=== PATIENT | male | born 1970 | race Caucasian/White ===

== ENCOUNTER 2022-05-04 13:20 | Emergency (ER) | payer OTHER ==
--- OUTSIDE RECORDS SUMMARY | 2022-05-04 13:24 | XMS REPORT | Continuity of Care Document ---
:1970 Author Organization [facility] t Address [address] [place] [address] Dr. Serrano [address] [place] [id number] Care Team Providers Name Role Phone Efraín_A Attending Clinician Unavailable Efraín_A Admitting Clinician Unavailable Payers Payer Name Policy Type Policy Number Effective Date Expiration Date William hoffman [employer] - CHOICE [id number] 2006 00:00:00 (POS II) Problems This patient has no known problems. Allergies, Adverse Reactions, Alerts This patient has no known allergies or adverse reactions. Social History Smoking Status Start Date Stop Date Source Former Smoker [facility] Medications Ordered Filled Start Stop Current Ordering Indication Dosage Frequency Signature Comments Components Source Medication Medication Date Date Medication? Clinician (SIG) Name Name allopurinol allopurinol No allopurino [facility] 100 mg 100 mg l 100 mg da tablet tablet tablet [facility] amlodipine amlodipine No amlodipine [facility] 5 mg tablet 5 mg tablet 5 mg d a tablet [facility] benzonatate benzonatate No 1capsul Q8H benzonatat [facility] 200 mg 200 mg e(s) e 200 mg da capsule capsule capsule Medica [facility] Take 1 Take 1 Take 1 Group capsule capsule capsule every 8 every 8 every 8 hours by hours by hours by oral route oral route oral route as needed. as needed. as needed. as needed as needed as needed for cough for cough for cough cefdinir cefdinir No 1capsul Q12H cefdinir [facility] 300 mg 300 mg e(s) 300 mg da capsule capsule capsule Medica l Take 1 Take 1 Take 1 Group capsule capsule capsule every 12 every 12 every 12 hours by hours by hours by oral route oral route oral route for 10 for 10 for 10 days. days. days. cyclobenzap cyclobenzap No cyclobenza [facility] rine 10 mg rine 10 mg richard 10 da tablet tablet mg tablet [facility]ica [facility] furosemide furosemide No furosemide [facility] 20 mg 20 mg 20 mg da tablet tablet tablet [facility] ibuprofen ibuprofen No ibuprofen [facility] 800 mg 800 mg 800 mg da tablet tablet tablet [facility] Jynarque 15 Jynarque 15 No Jynarque [facility] mg (AM)/15 mg (AM)/15 15 mg da mg (PM) mg (PM) (AM)/15 mg Med ical tablets tablets (PM) Group tablets lisinopril lisinopril No lisinopril [facility] 20 mg 20 mg 20 mg da tablet tablet tablet [facility] potassium potassium No potassium [facility] citrate ER citrate ER citrate ER da 15 mEq 15 mEq 15 mEq Medical (1,620 mg) (1,620 mg) (1,620 mg) Group tablet,exte tablet,exte tablet,ext nded nded ended release release release TAKE 1 TAKE 1 TAKE 1 TABLET BY TABLET BY TABLET BY MOUTH TWICE MOUTH TWICE MOUTH DAILY DAILY TWICE DAILY prednisone prednisone No prednisone [facility] 20 mg 20 mg 20 mg da tablet tablet tablet [facility] lisinopril lisinopril No lisinopril [facility] 20 20 20 da mg-hydrochl mg-hydrochl mg-hydroch Medical orothiazide orothiazide [facility] 25 mg 25 mg de 25 mg tablet TAKE tablet TAKE tablet 1 TABLET BY 1 TABLET BY TAKE 1 MOUTH 1 MOUTH 1 TABLET BY TIME EACH TIME EACH MOUTH 1 DAY DAY TIME EACH DAY Tessalon Tessalon No 1capsul Q7H Tessalon [facility] Perles 100 Perles 100 e(s) Perles 100 da mg capsule mg capsule mg capsule Medical Take 1 Take 1 Take 1 Group capsule capsule capsule every 6-8 every 6-8 every 6-8 hours by hours by hours by oral route. oral route. oral as needed as needed route. as for cough for cough needed for cough Vital Signs Vital Name Observation Time Observation Value Comments Source BP Diastolic 2022-03-06 00:00:00 93 mm[Hg] [facility] Height 2022-03-06 00:00:00 70 [in_i] [facility] BMI (Body Mass 2022-03-06 00:00:00 33 kg/m2 [facility]) Group BP Systolic 2022-03-06 00:00:00 130 mm[Hg] [facility] Body Weight 2022-03-06 00:00:00 3680 [oz_av] [facility] Height 2020-06-30 00:00:00 70 [in_i] [facility] BMI (Body Mass 2020-06-30 00:00:00 31.6 kg/m2 [facility] Body Weight 2020-06-30 00:00:00 3520 [oz_av] [facility] Procedures This patient has no known procedures. Plan of Care Planned Activity Planned Date Details Comments Source Diagnostic Test 2022-03-06 rapid influenza [facility] Pending 00:00:00 virus A + B and SARS Group CoV + SARS CoV 2 Ag panel, [place], upper respiratory specimen [code = rapid influenza virus A + B and SARS CoV + SARS CoV 2 Ag panel, [place], upper respiratory specimen] Diagnostic Test 2022-03-06 rapid strep group A, [facility] Pending 00:00:00 throat [code = rapid Group strep group A, throat] Instructions [facility] Encounters Start End Encounter Admission Attending Care Care Encounter Source Date/Time Date/Time Type Type Clinicians Facility Department ID 2022-03-06 2022-03-06 Outpatient Efraín_Zac [facility] [id number] [facility] 00:00:00 00:00:00 [id number] 2022-03-06 2022-03-06 Fátima [facility] [place] - [id number] M [facility] 00:00:00 00:00:00 Discovery almita Kenny PA-C: [facility] [address] [place] [address] , Ph. 2020-06-30 2020-06-30 Fátima Lowe [facility] [place] - [id number] [facility] 00:00:00 00:00:00 Discovery Efraín 0324 da PA-C: [facility] [address] [place] [address] , Ph. Results This patient has no known results.
[2022-05-04 13:52] LABS: Absolute Lymphocytes (CBC) 0.7 K/uL (0.7-4.9); Hematocrit 44.6 % (39.6-49.0); Lymphocytes % 4.7 % (15.3-44.8); MCV 88.8 fL (80-100); MPV 7.7 fL (7.6-11.3); RBC Red Blood Cell Count 5.02 M/uL (4.33-5.43)
[2022-05-04] MEDS ORDERED: ONDANSETRON 4 MG/2 ML VIAL ONE (13:57)
[2022-05-04] MEDS ORDERED: MORPHINE 4 MG/ML SYR ONE (13:57)
[2022-05-04 14:13] LABS: Albumin 3.4 g/dL (3.4-5.0); Bilirubin Direct 0.1 mg/dL (0-0.2); Bilirubin Total 0.7 mg/dL (0.2-1.0); Magnesium 2.2 mg/dL (1.6-2.4); Potassium 4.5 mmol/L (3.5-5.1); Protein, Total 7.6 g/dL (6.4-8.2); Troponin High Sensitivity 6.6 pg/mL (<58.9)
[2022-05-04 14:38] LABS: Blood Morphology Comment NOT SEEN (NOT SEEN); Platelet Estimate ADEQ; White Blood Cell Scan OK (OK)
--- NOTE | 2022-05-04 14:43 | RAD REPORT ---
EXAM DESCRIPTION: US - Abdomen Exam Limited - 05/04/2022 2:29 pm CLINICAL HISTORY: Right upper quadrant pain COMPARISON: None. FINDINGS: Liver contains many cysts. They vary in size from a few millimeters to several centimeters . No hemorrhage is seen. Gallbladder is probably seen. Gallbladder wall not thickened. A gallstone is not seen. Biliary tree i s normal caliber IMPRESSION: Hepatic cysts Gallbladder probably seen. No abnormality displayed
--- NOTE | 2022-05-04 15:22 | RAD REPORT ---
EXAM DESCRIPTION: Song Single View05/04/2022 2:46 pm CLINICAL HISTORY: Abdominal pain COMPARISON: none FINDINGS: The lungs appear clear of acute infiltrate. The heart is normal size IMPRESSION: No acute abnormalities displayed
--- NOTE | 2022-05-04 16:01 | RAD REPORT ---
EXAM DESCRIPTION: CT - Stone Protocol - 05/04/2022 3:38 pm CLINICAL HISTORY: Abdominal pain. Right flank pain COMPARISON: None. TECHNIQUE: Computed axial tomography of the abdomen pelvis was obtained without oral or IV contrast. Lack of IV and oral contrast limits evaluation of solid organs, appendix, bowel, and vessels. Lebron l reformatted images were obtained and reviewed. All CT scans are performed using dose optimization technique as appropriate and may include automated exposure control or mA/KV adjustment according to patient size. FINDINGS: The liver contains innumerable cysts. The largest measures 10 centimeters. Hepatomegaly Kidneys are enlarged containing innumerable cysts. Almost all are simple. There are couple cysts with increased density which are small. This may represent protein or blood. These probably are not signi ficant. 1 centimeter calculus right kidney. No hydronephrosis Spleen, pancreas and adrenals grossly normal No evidence of diverticulitis. Small right inguinal hernia contains fat IMPRESSION: Polycystic renal and liver disease. Hepatomegaly Nonobstructing right renal calculus
--- NOTE | 2022-05-04 16:38 | EDPHYS ---
Physician Documentation [facility] Name: Liban Díaz III Age: 51 yrs Sex: Male : 1970 Arrival Date: 05/04/2022 Time: 13:21 Bed 11 Private MD: Jacobo Whaley ED Physician Ken Gonzalez HPI: 05/04 13:45 This 51 yrs old Male presents to ER via Ambulatory with complaints of Epigastric Pain. cp 13:45 The patient presents with abdominal pain in the right upper quadrant. cp 13:45 Onset: The symptoms/episode began/occurred yesterday. cp 13:45 The symptoms do not radiate. Associated signs and symptoms: Pertinent positives: cp nausea, Pertinent negatives: chest pain, constipation, diarrhea, dysuria, fever, shortness of breath, testicular pain, vomiting. 13:45 The symptoms are described as constant. cp Historical: - Allergies: 13:32 No Known Allergies; iw - Home Meds: 13:32 potassium citrate oral [Active]; furosemide 20 mg Oral tab 1 tab once daily [Active]; iw prednisone 20 mg Oral tab once daily [Active]; lisinopril 20 mg Oral tab 1 tab once daily [Active]; Jynarque 15 mg oral tab [Active]; - PMHx: 13:32 PCKD; Hypertensive disorder; iw - PSHx: 13:32 ankle; shoulder; iw - Immunization history:: Client reports having NOT received the Covid vaccine. - Social history:: Smoking status: . ROS: 13:50 Constitutional: Negative for body aches, chills, fever, poor PO intake. cp 13:50 Eyes: Negative for injury, pain, redness, and discharge. cp 13:50 ENT: Negative for drainage from ear(s), ear pain, sore throat, difficulty swallowing, cp difficulty handling secretions. 13:50 Cardiovascular: Negative for chest pain, edema, palpitations. 13:50 Respiratory: Negative for cough, shortness of breath, wheezing. 13:50 Abdomen/GI: Positive for abdominal pain, of the right upper quadrant, Negative for vomiting, diarrhea, constipation. 13:50 Back: Negative for pain at rest, pain with movement. 13:50 : Negative for urinary symptoms, testicular pain 13:50 Neuro: Negative for altered mental status, dizziness, headache, weakness. 13:50 All other systems are negative. Exam: 13:55 Constitutional: The patient appears in no acute distress, alert, awake, cp non-diaphoretic, non-toxic, well developed, well nourished, uncomfortable, overweight 13:55 Head/Face: Normocephalic, atraumatic. cp 13:55 Eyes: Periorbital structures: appear normal, Conjunctiva: normal, no exudate, no injection, Sclera: no appreciated abnormality, Lids and lashes: appear normal, bilaterally. 13:55 ENT: External ear(s): are unremarkable, Nose: is normal, Mouth: Lips: moist, Oral mucosa: moist, Posterior pharynx: is normal, airway is patent, no erythema, no exudate. 13:55 Neck: ROM/movement: is normal, is supple, without pain, no range of motions limitations. 13:55 Chest/axilla: Inspection: normal. 13:55 Cardiovascular: Rate: tachycardic, Rhythm: regular, Edema: is not appreciated, JVD: is not appreciated. 13:55 Respiratory: the patient does not display signs of respiratory distress, Respirations: normal, no use of accessory muscles, no retractions, labored breathing, is not present, Breath sounds: are clear throughout, no decreased breath sounds, no stridor, no wheezing. 13:55 Abdomen/GI: Inspection: abdomen appears normal, Bowel sounds: active, all quadrants, Palpation: soft, in all quadrants, moderate abdominal tenderness, in the right upper quadrant, rebound tenderness, is not appreciated, voluntary guarding, is elicited in the right upper quadrant. 13:55 Back: CVA tenderness, is absent. 13:55 Neuro: Orientation: to person, place \T\ time. Mentation: is normal, Motor: moves all fours, strength is normal, Gait: is steady. 14:45 ECG was reviewed by the Attending Physician. cp Vital Signs: 13:30 BP 129 / 102; Pulse 123; Resp 16; Temp 98.6(O); Pulse Ox 95% on R/A; Weight 99.34 kg; iw Height 5 ft. 10 in. (177.80 cm); Pain 5/10; 16:28 BP 110 / 80; Pulse 73; Pulse Ox 98% on R/A; ap3 13:30 Body Mass Index 31.42 (99.34 kg, 177.80 cm) iw MDM: 13:36 Patient medically screened. cp 14:00 Differential diagnosis: cholecystitis, Cholelithiasis, gastritis, gastroesophageal cp reflux disease, GI Bleed, pancreatitis, Peptic Ulcer Disease, Perf. Duodenal Ulcer, Perf. Gastric Ulcer, Pyelonephritis, Ureterolithiasis, urinary tract infection. 16:37 Data reviewed: vital signs, nurses notes, lab test result(s), EKG, radiologic studies, cp CT scan, plain films, ultrasound. 16:37 Consideration of Admission/Observation Escalation of care including cp admission/observation considered. I considered the following discharge prescriptions or medication management in the emergency department Medications were administered in the Emergency Department. See MAR. Test considered but Not performed: Other Details HIDA scan. Care significantly affected by the following chronic conditions: Hypertension. Counseling: I had a detailed discussion with the patient and/or guardian regarding: the historical points, exam findings, and any diagnostic results supporting the discharge/admit diagnosis, lab results, radiology results, the need for outpatient follow up, a family practitioner, a study lead, to return to the emergency department if symptoms worsen or persist or if there are any questions or concerns that arise at home. Response to treatment: the patient's symptoms have markedly improved after treatment, and as a result, I will discharge patient. Special discussion: Based on the patient's Hx, exam, and Dx evaluation, there is no indication for emergent surgery or inpatient Tx. It is understood by the patient/guardian that if the Sx's persist or worsen they need to return immediately for re-evaluation. 05/04 13:38 Order name: Basic Metabolic Panel; Complete Time: 14:21 cp 05/04 16:13 Interpretation: Normal except: CL 108; GLUC 170; BUN 29; CRE 1.96; GFR 40. cp 05/04 13:38 Order name: CBC with Diff; Complete Time: 14:48 cp 05/04 14:22 Interpretation: Normal except: WBC 14.30; HERB% 90.9; LYM% 4.7; NEUT A 13.0. cp 05/04 13:38 Order name: LFT's; Complete Time: 14:21 cp 05/04 13:38 Order name: Magnesium; Complete Time: 14:21 cp 05/04 13:38 Order name: NT PRO-BNP; Complete Time: 14:21 cp 05/04 13:38 Order name: Troponin HS; Complete Time: 14:21 cp 05/04 13:38 Order name: XRAY Chest (1 view); Complete Time: 15:25 cp 05/04 15:26 Interpretation: Report review. 05/04 13:38 Order name: Lipase; Complete Time: 14:21 cp 05/04 13:38 Order name: US Abdomen Limited; Complete Time: 14:48 cp 05/04 15:18 Interpretation: Report reviewed. 05/04 14:01 Order name: CBC Smear Scan; Complete Time: 14:48 EDMS 05/04 15:20 Order name: CT Stone Protocol; Complete Time: 16:12 cp 05/04 13:38 Order name: EKG; Complete Time: 13:39 cp 05/04 13:38 Order name: EKG - Nurse/Tech; Complete Time: 14:42 cp 05/04 13:38 Order name: IV Saline Lock; Complete Time: 13:44 cp 05/04 13:38 Order name: Labs collected and sent; Complete Time: 13:44 cp 05/04 13:38 Order name: O2 Per Protocol; Complete Time: 14:42 cp 05/04 13:38 Order name: O2 Sat Monitoring; Complete Time: 14:42 cp 05/04 16:20 Order name: Vital Signs; Complete Time: 16:28 cp EC:45 Rate is 98 beats/min. Rhythm is regular. FL interval is normal. QRS interval is normal. cp QT interval is normal. T waves are Inverted in lead aVR. Interpreted by me. Reviewed by me. Administered Medications: 13:58 Drug: Zofran (Ondansetron) 4 mg Route: IVP; Site: left antecubital; iw 16:50 Follow up: Response: No adverse reaction; Nausea is decreased ap3 13:59 Drug: morphine 4 mg Route: IVP; Infused Over: 4 mins; Site: left antecubital; iw 16:50 Follow up: Response: No adverse reaction; Pain is decreased ap3 14:32 Drug: NS 0.9% 1000 ml Route: IV; Rate: 1 bolus; Site: right antecubital; ap3 16:50 Follow up: IV Status: Completed infusion; IV Intake: 1000ml ap3 16:28 Drug: ProTONIX (pantoprazole) 40 mg Route: IVP; Site: right antecubital; ap3 16:49 Follow up: Response: No adverse reaction ap3 Disposition: 17:04 I reviewed the patient's care provided by Advanced Practice Provider \T\ agree w/ the jr11 diagnosis \T\ care plan. I personally saw the pt \T\ performed a substantive portion of the visit, incldng all aspects of the (History/Exam/Medical Decision Making). Disposition Summary: 05/04/22 16:38 Discharge Ordered Location: Home cp Problem: new cp Symptoms: have improved cp Condition: Stable cp Diagnosis - Upper abdominal pain, unspecified cp - Chronic kidney disease, unspecified cp - Calculus of kidney - right cp Followup: cp - With: Michael Zamarripa MD - When: 2 - 3 days - Reason: Recheck today's complaints Discharge Instructions: - Discharge Summary Sheet cp - Gastroesophageal Reflux Disease, Adult cp - Kidney Stones cp - Chronic Kidney Disease, Adult cp Forms: - Medication Reconciliation Form cp - Thank You Letter cp - Antibiotic Education cp - Prescription Opioid Use cp Prescriptions: - Protonix 40 mg Oral tablet,delayed release (DR/EC) - take 1 tablet by ORAL route every 12 hours; 60 tablet; Refills: 0, Product cp Selection Permitted - Zofran 4 mg Oral Tablet - take 1 tablet by ORAL route every 12 hours As needed; 20 tablet; Refills: 0, cp Product Selection Permitted Signatures: Dispatcher [employer] Claudia Lopez, RN OSMANI iw Tristen Woo PA PA cp Amaris Rodriguez RN RN ap3 Ken Gonzalez MD MD [email or web address] Corrections: (The following items were deleted from the chart) 14:42 13:38 Cardiac monitoring ordered. cp ap3
--- NOTE | 2022-05-04 16:38 | ER ---
Nurse's Notes [facility] Name: Liban Díaz III Age: 51 yrs Sex: Male : 1970 Arrival Date: 05/04/2022 Time: 13:21 Bed 11 Private MD: Jacobo Whaley Diagnosis: Upper abdominal pain, unspecified;Chronic kidney disease, unspecified;Calculus of kidney-right Presentation: 05/04 13:30 Chief complaint: Patient states: have a real sharp pain on RUQ started yesterday, was iw seen by Attila Jain and was sent here, wants to R/O cholecystitis. Coronavirus screen: At this time, the client does not indicate any symptoms associated with coronavirus-19. Ebola Screen: Patient negative for fever greater than or equal to 101.5 degrees Fahrenheit, and additional compatible Ebola Virus Disease symptoms Patient denies exposure to infectious person. Patient denies travel to an Ebola-affected area in the 21 days before illness onset. No symptoms or risks identified at this time. Initial Sepsis Screen: Does the patient meet any 2 criteria? No. Patient's initial sepsis screen is negative. Does the patient have a suspected source of infection?. Risk Assessment: Do you want to hurt yourself or someone else? Patient reports no desire to harm self or others. Onset of symptoms was May 03, 2022. 13:30 Method Of Arrival: Ambulatory iw 13:30 Acuity: DALIA 3 iw Historical: - Allergies: 13:32 No Known Allergies; iw - Home Meds: 13:32 potassium citrate oral [Active]; furosemide 20 mg Oral tab 1 tab once daily [Active]; iw prednisone 20 mg Oral tab once daily [Active]; lisinopril 20 mg Oral tab 1 tab once daily [Active]; Jynarque 15 mg oral tab [Active]; - PMHx: 13:32 PCKD; Hypertensive disorder; iw - PSHx: 13:32 ankle; shoulder; iw - Immunization history:: Client reports having NOT received the Covid vaccine. - Social history:: Smoking status: . Screenin:[facility] ED Fall Risk Assessment (Adult) History of falling in the last 3 months, iw including since admission. Abuse screen: Denies threats or abuse. Denies injuries from another. Nutritional screening: No deficits noted. Tuberculosis screening: No symptoms or risk factors identified. Assessment: 14:00 General: Appears uncomfortable, Behavior is calm, cooperative. Pain: Complains of pain iw in right upper quadrant. Neuro: Level of Consciousness is awake, alert, obeys commands, Oriented to person, place, time, situation. Cardiovascular: Patient's skin is warm and dry. Respiratory: Respiratory effort is even, unlabored, Respiratory pattern is regular. GI: Abdomen is Abdomen is tender to palpation in right upper quadrant. Derm: Skin is intact, is healthy with good turgor. 15:43 Reassessment: Patient and/or family updated on plan of care and expected duration. Pain ap3 level reassessed. Patient is alert, oriented x 3, equal unlabored respirations, skin warm/dry/pink. Vital Signs: 13:30 BP 129 / 102; Pulse 123; Resp 16; Temp 98.6(O); Pulse Ox 95% on R/A; Weight 99.34 kg; iw Height 5 ft. 10 in. (177.80 cm); Pain 5/10; 16:28 BP 110 / 80; Pulse 73; Pulse Ox 98% on R/A; ap3 13:30 Body Mass Index 31.42 (99.34 kg, 177.80 cm) iw ED Course: 13:21 Patient arrived in ED. as 13:21 Jacobo Whaley MD is Private Physician. as 13:22 Tristen Woo PA is PHCP. cp 13:22 Ken Gonzalez MD is Attending Physician. cp 13:31 Triage completed. iw 13:32 Arm band placed on. iw 13:37 Amaris Rodriguez, OSMANI is Primary Nurse. ap3 13:43 Inserted saline lock: 22 gauge in right antecubital area, using aseptic technique. iw Blood collected. 14:31 US Abdomen Limited In Process Unspecified. EDMS 14:47 XRAY Chest (1 view) In Process Unspecified. EDMS 15:21 Patient has correct armband on for positive identification. Bed in low position. Call ap3 light in reach. Side rails up X 1. Pulse ox on. NIBP on. Door closed. Noise minimized. 15:21 No provider procedures requiring assistance completed. ap3 15:40 CT Stone Protocol In Process Unspecified. EDMS 16:33 Michael Zamarripa MD is Referral Physician. cp 16:49 IV discontinued, intact, bleeding controlled, No redness/swelling at site. Pressure ap3 dressing applied. Administered Medications: 13:58 Drug: Zofran (Ondansetron) 4 mg Route: IVP; Site: left antecubital; iw 16:50 Follow up: Response: No adverse reaction; Nausea is decreased ap3 13:59 Drug: morphine 4 mg Route: IVP; Infused Over: 4 mins; Site: left antecubital; iw 16:50 Follow up: Response: No adverse reaction; Pain is decreased ap3 14:32 Drug: NS 0.9% 1000 ml Route: IV; Rate: 1 bolus; Site: right antecubital; ap3 16:50 Follow up: IV Status: Completed infusion; IV Intake: 1000ml ap3 16:28 Drug: ProTONIX (pantoprazole) 40 mg Route: IVP; Site: right antecubital; ap3 16:49 Follow up: Response: No adverse reaction ap3 Medication: 15:21 VIS not applicable for this client. ap3 Intake: 16:50 IV: 1000ml; Total: 1000ml. ap3 Outcome: 16:38 Discharge ordered by . cp 16:49 Discharged to home ambulatory. ap3 16:49 Condition: good 16:49 Discharge instructions given to patient, Instructed on discharge instructions, follow up and referral plans. medication usage, Demonstrated understanding of instructions, follow-up care, medications, Prescriptions given X 2. 16:49 Patient left the ED. ap3 Signatures: Dispatcher [employer] Molly Hinds Irene, RN RN iw Tristen Woo PA PA cp Prokisch, Amanda, RN RN ap3 Corrections: (The following items were deleted from the chart) 13:34 13:30 BP 141 / 104; Pulse 123bpm; Resp 16bpm; Pulse Ox 95% RA; Temp 100.0F; 99.34 kg; iw Height 5 ft. 10 in.; BMI: 31.4; Pain 5/10; iw 13:35 13:30 BP 129 / 102; Pulse 123bpm; Resp 16bpm; Pulse Ox 95% RA; Temp 100.0F; 99.34 kg; iw Height 5 ft. 10 in.; BMI: 31.4; Pain 5/10; iw
[2022-05-04 17:07] VITALS: TEMP 98.6
[2022-05-04 17:13] VITALS: BP 110/80; O2SAT 98
--- NOTE | 2022-05-05 13:17 | EKG ---
Test Date: 2022-05-04 Test Time: 14:38:47 Extension Service Specialist: ALP MEASUREMENT RESULTS: Intervals: Rate: 98 FL: 162 QRSD: 86 QT: 334 QTc: 426 Celeste: P: 46 FL: 162 QRS: -46 T: 12 INTERPRETIVE STATEMENTS: Normal sinus rhythm Left axis deviation Inferior infarct, age undetermined Cannot rule out Anterior infarct, age undetermined Abnormal ECG No previous ECG available for comparison Electronically Signed On 05-05-22 13:14:56 HANDBAG DESIGNER by Marvin Tineo
== END 2022-05-04 16:49 | disposition home or self-care (01) ==
LOC: ER 13:20
DX: N20.0 Calculus of kidney (principal); I12.9 Hypertensive chronic kidney disease with stage 1 through stage 4 chronic kidney disease, or unspecified chronic kidney disease; N18.9 Chronic kidney disease, unspecified
CPT/HCPCS: 93005; 85025; 80048; 36415; 83735; 80076; 84484; 83690; 83880; 76377; 74176; 71045; 76705; 99284; J2405

== ENCOUNTER 2023-01-27 19:00 | Emergency (ER) | payer OTHER ==
--- OUTSIDE RECORDS SUMMARY | 2023-01-27 19:03 | XMS REPORT | Continuity of Care Document ---
:1970 Author Organization [facility] t Address [address] [place] [address] [place] [id number] Care Team Providers Name Role Phone ANNMARIE JOHNSON Attending Clinician Unavailable YARITZA SMITH Attending Clinician Unavailable Mynor Attending Clinician Unavailable MOHAN TORIBIO Attending Clinician Unavailable EV BUSH Attending Clinician Unavailable STACIA MOREL Attending Clinician Unavailable ORION SANDOVAL Attending Clinician Unavailable LEMUEL CUADRA Attending Clinician Unavailable CARA GALLEGOS Attending Clinician Unavailable Mynor Admitting Clinician Unavailable LEMUEL CUADRA Admitting Clinician Unavailable Payers Payer Name Policy Type Policy Number Effective Date Expiration Date William hoffman [employer] - CHOICE [id number] 2006 00:00:00 (POS II) Problems This patient has no known problems. Allergies, Adverse Reactions, Alerts This patient has no known allergies or adverse reactions. Social History Smoking Status Start Date Stop Date Source Former Smoker [facility] Medications Ordered Filled Start [...] mg da tablet tablet tablet [facility] allopurinol allopurinol No allopurino [facility] 100 mg 100 mg l 100 mg da tablet tablet tablet [facility] cefdinir cefdinir No 1capsul Q12H cefdinir [facility] 300 mg 300 mg e(s) 300 mg da capsule capsule capsule Medica l Take 1 Take 1 Take 1 Group capsule capsule capsule every 12 every 12 every 12 hours by hours by hours by oral route oral route oral route for 10 for 10 for 10 days. days. days. lisinopril lisinopril No lisinopril [facility] 20 20 20 da mg-hydrochl mg-hydrochl mg-hydroch Medical orothiazide orothiazide [facility] 25 mg 25 mg de 25 mg tablet TAKE tablet TAKE tablet 1 TABLET BY 1 TABLET BY TAKE 1 MOUTH 1 MOUTH 1 TABLET BY TIME EACH TIME EACH MOUTH 1 DAY DAY TIME EACH DAY codeine 10 codeine 10 No 5mL codeine 10 [facility] mg-guaifene mg-guaifene mg-guaifen da sin 100 sin 100 esin 100 Medic al mg/5 mL mg/5 mL mg/5 mL Group oral liquid oral liquid oral Take 5 mL Take 5 mL liquid by oral by oral Take 5 mL route at route at by oral bedtime. as bedtime. as route at needed for needed for bedtime. cough/ cough/ as needed congestion/ congestion/ for cough/ may cause may cause congestion drowsiness drowsiness / may cause drowsiness febuxostat febuxostat No febuxostat [facility] 40 mg 40 mg 40 mg da tablet tablet tablet [facility] furosemide furosemide No furosemide [facility] 20 mg 20 mg 20 mg da tablet tablet tablet [facility] lisinopril lisinopril No lisinopril [facility] 20 mg 20 mg 20 mg da tablet tablet tablet [facility] pantoprazol pantoprazol No pantoprazo [place] e 40 mg e 40 mg le 40 mg da tablet,billie tablet,billie tablet,del Medical yed release yed release ayed G roup TAKE 1 TAKE 1 release TABLET BY TABLET BY TAKE 1 MOUTH EVERY MOUTH EVERY TABLET BY 12 HOURS 12 HOURS MOUTH EVERY DAY EVERY DAY EVERY 12 HOURS EVERY DAY potassium potassium No potassium [facility] citrate ER citrate ER citrate ER da 15 mEq 15 mEq 15 mEq Medical (1,620 mg) (1,620 mg) (1,620 mg) Group tablet,exte tablet,exte tablet,ext nded nded ended release release release TAKE 1 TAKE 1 TAKE 1 TABLET BY TABLET BY TABLET BY MOUTH TWICE MOUTH TWICE MOUTH DAILY DAILY TWICE DAILY Tessalon Tessalon No 1capsul Q7H Tessalon [place] [...] Time Observation Value Comments Source BP Diastolic 2022-08-09 00:00:00 107 mm[Hg] [facility] Height 2022-08-09 00:00:00 70 [in_i] [facility] BMI (Body Mass 2022-08-09 00:00:00 32.7 kg/m2 [facility] BP Systolic 2022-08-09 00:00:00 156 mm[Hg] [facility] Body Weight 2022-08-09 00:00:00 3648 [oz_av] [facility] BP Diastolic 2022-03-06 00:00:00 93 mm[Hg] [facility] Height 2022-03-06 00:00:00 70 [in_i] [facility] BMI (Body Mass 2022-03-06 00:00:00 33 kg/m2 [facility] BP Systolic 2022-03-06 00:00:00 130 mm[Hg] [facility] Body Weight 2022-03-06 00:00:00 3680 [oz_av] [facility] Height 2020-06-30 00:00:00 70 [in_i] [facility] BMI (Body Mass 2020-06-30 00:00:00 31.6 kg/m2 [facility] Body Weight 2020-06-30 00:00:00 3520 [oz_av] [facility] Procedures This patient has no known procedures. Plan of Care Planned Activity Planned Date Details Comments Source Diagnostic Test 2022-03-06 rapid influenza [facility] Pending 00:00:00 virus A + B [...] rapid Group strep group A, throat] Instructions [facility] Encounters Start End Encounter Admission Attending Care Care Encounter Source Date/Time Date/Time Type Type Clinicians Facility Department ID 2023-01-27 2023-01-27 Emergency ER ALEX [facility] [id number] [facility] 17:40:00 17:40:00 ANNMARIE [id number] [facility] 2022-10-14 2022-10-14 Emergency ER SARAH, [facility] [id number] [facility] 20:30:00 23:33:00 YARITZA -[id number] [facility] 2022-08-09 2022-08-09 Outpatient Koudela_A [facility] [id number] [place] 00:00:00 00:00:00 [id number] [facility] 2022-08-09 2022-08-09 Fátima G [place] - [id number] [facility] 00:00:00 00:00:00 Discovery Efraín da PA-C: [address] [place] [address] , Ph. 2022-03-06 2022-03-06 Outpatient Koudela_A MMG [facility] [id number] [place] 00:00:00 00:00:00 [id number] [facility] 2022-03-06 2022-03-06 Fátima [facility] [place] - [id number] [facility] 00:00:00 00:00:00 Discovery Efraín da PA-C: [address] [place] [address] , Ph. 2021-09-16 2021-09-16 Outpatient CHERRY TORIBIO, [facility] [id number] [place] 09:22:00 09:22:00 VINITHA -[id number] [facility] 2021-07-15 2021-07-15 Outpatient CHERRY TORIBIO, [facility] [id number] [facility] 10:31:00 10:31:00 VINITHA -[id number] [facility] 2021-04-14 2021-04-14 Emergency ER EV BUSH [facility] [id number] [place] 13:44:00 16:38:00 -[id number] [facility] 2020-06-30 2020-06-30 Fátima Joceudela_[place] MM[place] - [id number] [facility] 00:00:00 00:00:00 Discovery Efraín 0324 da PA-C: 600 [facility] [place] [facility] - [address], [facility] [address] , Ph. 2018-12-01 2018-12-01 Emergency ER MOREL, [facility] [id number] [place] 13:41:00 14:09:00 STACIA -[id number] [facility] 2017-05-23 2017-05-23 Emergency ER [facility], [facility] [id number] [place] 10:48:00 12:47:00 ORION -[id number] [facility] 2014-02-12 2014-02-12 Emergency ER [facility], [facility] [id number] [place] 16:42:00 19:20:00 ORION -[id number] [facility] 2009-11-16 2009-11-17 Inpatient [facility] [id number] [place] 12:33:00 09:26:00 LEMUEL -[id number] [facility] 2008-06-26 2008-06-26 Emergency ER ROSY, [facility] [id number] [place] 03:05:00 04:58:00 CARA -[id number] [facility] Results This patient has no known results.
[2023-01-27 19:53] LABS: Absolute Lymphocytes (CBC) 2.4 K/uL (0.7-4.9); Lymphocytes % 16.3 % (15.3-44.8); MCV 86.6 fL (80-100); MPV 7.4 fL (7.6-11.3); Platelets 333 thou/uL (152-406); RBC Red Blood Cell Count 4.85 M/uL (4.33-5.43)
[2023-01-27 20:14] LABS: Albumin 3.5 g/dL (3.4-5.0); Bilirubin Total 0.4 mg/dL (0.2-1.0); Potassium 4.6 mEq/L (3.5-5.1); Protein, Total 8.2 g/dL (6.4-8.2)
--- NOTE | 2023-01-27 21:23 | RAD REPORT ---
EXAM DESCRIPTION: US - Abdomen Exam Limited - 01/27/2023 8:22 pm CLINICAL HISTORY: ABD PAIN COMPARISON: Stone Protocol dated 05/04/2022 TECHNIQUE: Sonographic grayscale and color flow images of the right upper abdominal quadrant were obtained. FINDINGS: The gallbladder demonstrates no gallstones. No pericholecystic fluid or gallbladder wall t hickening. The common bile duct is normal measuring 3 mm. The liver demonstrates innumerable thin-walled cysts. No findings of intrahepatic biliary dilatation. IMPRESSION: No evidence of chololithiasis, or findings to suggest acute cholecystitis. Innumerable h epatic parenchymal cysts, appearance compatible with multicystic liver disease.
--- NOTE | 2023-01-27 21:25 | RAD REPORT ---
EXAM DESCRIPTION: RAD - Chest Pa And Lat (2 Views) - 01/27/2023 7:52 pm CLINICAL HISTORY: COUGH COMPARISON: Chest Single View dated 05/04/2022 TECHNIQUE: PA and lateral views of the chest were obtained. FINDINGS: The lungs are clear. Heart size is normal and central vasculature is within normal limits. No pleural effusion or pneumothorax seen. No acute bony finding noted. IMPRESSION: No acute cardiopulmonary process.
--- NOTE | 2023-01-27 21:57 | ER ---
Nurse's Notes [facility] Name: Liban Díaz III Age: 52 yrs Sex: Male : 1970 Arrival Date: 01/27/2023 Time: 19:00 Bed 16 Private MD: Diagnosis: Right upper quadrant pain Presentation: 01/27 19:08 Chief complaint: Patient states: he is having right sided rib pain that radiates up to ap3 right ear. patient states the pain began approx 2 weeks ago, and is getting progressively worse. patient currently rates the pain a 7/10 on the pain scale. Coronavirus screen: At this time, the client does not indicate any symptoms associated with coronavirus-19. Ebola Screen: No symptoms or risks identified at this time. Initial Sepsis Screen: Does the patient meet any 2 criteria? No. Patient's initial sepsis screen is negative. Does the patient have a suspected source of infection? No. Patient's initial sepsis screen is negative. Risk Assessment: Do you want to hurt yourself or someone else? Patient reports no desire to harm self or others. Onset of symptoms was January 13, 2023. 19:08 Method Of Arrival: Ambulatory ap3 19:08 Acuity: DALIA 3 ap3 Triage Assessment: 19:11 General: Appears in no apparent distress. Behavior is calm, cooperative, appropriate ap3 for age. Pain: Complains of pain in right lateral anterior chest Pain radiates to right ear. Neuro: Level of Consciousness is awake, alert, obeys commands, Oriented to person, place, time, situation. Cardiovascular: Patient's skin is warm and dry. Respiratory: Airway is patent Respiratory effort is even, unlabored, Respiratory pattern is regular, symmetrical. Historical: - Allergies: 19:10 No Known Allergies; ap3 - PMHx: 19:10 Hypertensive disorder; PCKD; ap3 - PSHx: 19:10 Ankle; Shoulder; ap3 - Immunization history:: Client reports having NOT received the Covid vaccine. - Social history:: Smoking status: Patient denies any tobacco usage or history of. - Code Status:: Full code. Screenin:12 [facility] ED Fall Risk Assessment (Adult) History of falling in the last 3 months, ap3 including since admission No falls in past 3 months (0 pts). Abuse screen: Denies threats or abuse. Nutritional screening: No deficits noted. Tuberculosis screening: No symptoms or risk factors identified. Assessment: 19:51 General: Appears in no apparent distress. uncomfortable, well groomed, well developed, nw1 well nourished, Behavior is calm, cooperative, appropriate for age. Pain: Complains of pain in abdomen Pain radiates to neck Pain currently is 7 out of 10 on a pain scale. level that patient reports is acceptable is 3 out of 10 on a pain scale. Neuro: No deficits noted. Cardiovascular: No deficits noted. Respiratory: No deficits noted. GI: No deficits noted. Reports upper abdominal pain. : No deficits noted. Vital Signs: 19:08 BP 133 / 94; Pulse 90; Resp 17; Temp 100; Pulse Ox 100% ; Weight 98.43 kg; Height 5 ft. ap3 10 in. ; Pain 7/10; 19:53 BP 121 / 90; Pulse 89; Resp 15; Pulse Ox 97% ; nw1 21:56 BP 102 / 79; Pulse 80; Resp 16; Pulse Ox 99% ; nw1 19:08 Body Mass Index 31.14 (98.43 kg, 177.8 cm) ap3 19:08 Pain Scale: Adult ap3 ED Course: 19:02 Patient arrived in ED. mr 19:10 Triage completed. ap3 19:12 Arm band placed on right wrist. ap3 19:18 conductor yard on. Pulse ox on. NIBP on. ap3 19:25 Wai Brown DO is Attending Physician. ms3 19:51 Sarahy Zaragoza, RN is Primary Nurse. nw1 19:53 Chest Pa And Lat (2 Views) XRAY In Process Unspecified. EDMS 19:55 Patient has correct armband on for positive identification. Placed in gown. Bed in low nw1 position. Call light in reach. Side rails up X2. Adult w/ patient. Provided Education on: POC. 19:55 No provider procedures requiring assistance completed. Inserted saline lock: 20 gauge nw1 in left forearm, using aseptic technique. 20:24 US Abdomen Limited In Process Unspecified. EDMS 21:56 Timothy Bianchi DO is Referral Physician. ms3 22:19 IV discontinued, intact, bleeding controlled, No redness/swelling at site. Pressure nw1 dressing applied. Administered Medications: No medications were administered Medication: 19:54 VIS not applicable for this client. nw1 Outcome: 21:56 Discharge ordered by . ms3 22:18 Discharged to home ambulatory, with significant other, nw1 22:18 Condition: improved 22:18 Discharge instructions given to patient, significant other, Demonstrated understanding of instructions, follow-up care, 22:20 Patient left the ED. nw1 Signatures: Dispatcher [employer] EDMS Jaki Watson, Reg Reg mr Amaris Rodriguez, OSMANI RN ap3 Wai Brown, DO ms3 Sarahy Zaragoza, OSMANI RN nw1
--- NOTE | 2023-01-27 21:57 | EDPHYS ---
Physician Documentation [facility] Name: Liban Díaz III Age: 52 yrs Sex: Male : 1970 Arrival Date: 01/27/2023 Time: 19:00 Bed 16 Private MD: ED Physician Wai Brown HPI: 01/27 21:56 This 52 yrs old Male presents to ER via Ambulatory with complaints of Cough, Rib pain ms3 radiates to neck. 21:56 52-year-old male with past medical history of hypertension, polycystic kidney disease ms3 presents to the emergency department for right upper quadrant/rib pain with coughing. Patient states pain is 7/10 and sharp. Patient states coughing makes the pain worse. Patient denies alleviating factors.. Historical: - Allergies: 19:10 No Known Allergies; ap3 - PMHx: 19:10 Hypertensive disorder; PCKD; ap3 - PSHx: 19:10 Ankle; Shoulder; ap3 - Immunization history:: Client reports having NOT received the Covid vaccine. - Social history:: Smoking status: Patient denies any tobacco usage or history of. - Code Status:: Full code. ROS: 21:56 Constitutional: Negative for fever, and chills. Cardiovascular: Negative for chest ms3 pain, and palpitations. Skin: Negative for injury, rash, and discoloration, 21:56 Abdomen/GI: Positive for abdominal pain, of the right upper quadrant, Negative for nausea, vomiting, and diarrhea, Exam: 21:19 ECG was reviewed by the Attending Physician. ms3 21:56 Constitutional: This is a well developed, well nourished patient who is awake, alert, ms3 and in no acute distress. Head/Face: Normocephalic, atraumatic. Chest/axilla: Normal chest wall appearance and motion. Nontender with no deformity. Cardiovascular: Regular rate and rhythm with a normal S1 and S2. No gallops, murmurs, or rubs. Normal PMI, no JVD. No pulse deficits. Respiratory: Lungs have equal breath sounds bilaterally, clear to auscultation and percussion. No rales, rhonchi or wheezes noted. No increased work of breathing, no retractions or nasal flaring. Skin: Warm, dry with normal turgor. Normal color with no rashes, no lesions, and no evidence of cellulitis. 21:56 Abdomen/GI: Inspection: abdomen appears normal, Bowel sounds: normal, Palpation: moderate abdominal tenderness, in the right upper quadrant, Vital Signs: 19:08 BP 133 / 94; Pulse 90; Resp 17; Temp 100; Pulse Ox 100% ; Weight 98.43 kg; Height 5 ft. ap3 10 in. ; Pain 7/10; 19:53 BP 121 / 90; Pulse 89; Resp 15; Pulse Ox 97% ; nw1 21:56 BP 102 / 79; Pulse 80; Resp 16; Pulse Ox 99% ; nw1 19:08 Body Mass Index 31.14 (98.43 kg, 177.8 cm) ap3 19:08 Pain Scale: Adult ap3 MDM: 19:30 Patient medically screened. ms3 21:56 Differential Diagnosis: Viral Syndrome Pneumonia Other Cholecystitis. ms3 21:56 Data reviewed: vital signs, nurses notes, lab test result(s), radiologic studies, and ms3 as a result, I will discharge patient. Counseling: I had a detailed discussion with the patient and/or guardian regarding the historical points, exam findings, and any diagnostic results supporting the discharge/admit diagnosis, lab results, radiology results, the need for outpatient follow up, to return to the emergency department if symptoms worsen or persist or if there are any questions or concerns that arise at home. Special discussion: Based on the patient's Hx, exam, and Dx evaluation, there is no indication for emergent surgery or inpatient Tx. It is understood by the patient/guardian that if the Sx's persist or worsen they need to return immediately for re-evaluation. ED course: Discussed labs and imaging with patient and his . Patient to follow-up with primary care physician in 2 to 3 days. Patient understands and agrees with plan. All questions were answered. Return precautions discussed include worsening symptoms, or any other concerns. On reevaluation patient is alert and oriented x4, no apparent distress, nontoxic-appearing, ambulatory number department, speaking full sentences. 01/27 19:31 Order name: CBC with Diff; Complete Time: 20:58 ms3 01/27 19:31 Order name: CMP; Complete Time: 20:58 ms3 01/27 19:31 Order name: Lipase; Complete Time: 20:58 ms3 01/27 19:22 Order name: Chest Pa And Lat (2 Views) XRAY; Complete Time: 21:35 ms3 01/27 19:31 Order name: US Abdomen Limited; Complete Time: 21:35 ms3 01/27 19:31 Order name: EKG; Complete Time: 19:32 ms3 01/27 19:31 Order name: IV Saline Lock; Complete Time: 19:48 ms3 01/27 19:31 Order name: Labs collected and sent; Complete Time: 19:48 ms3 01/27 19:31 Order name: EKG - Nurse/Tech; Complete Time: 21:23 ms3 EC:19 Rate is 78 beats/min. Rhythm is regular. QRS [place] is Normal. VT interval is normal. QRS ms3 interval is normal. Clinical impression: NSR w/ Non-specific ST/T Changes. Interpreted by me. Reviewed by me. Administered Medications: No medications were administered Disposition Summary: 01/27/23 21:56 Discharge Ordered Notes: Location: Home ms3 Condition: Stable ms3 Diagnosis - Right upper quadrant pain ms3 Followup: ms3 - With: Timothy Bianchi DO - When: 2 - 3 days - Reason: Recheck today's complaints Discharge Instructions: - Discharge Summary Sheet ms3 - Abdominal Pain, Adult ms3 Forms: - Medication Reconciliation Form ms3 - Thank You Letter ms3 - Antibiotic Education ms3 - Prescription Opioid Use ms3 - Patient Portal Instructions ms3 - Leadership Thank You Letter ms3 Signatures: Dispatcher [employer] Amaris Ochoa, RN RN ap3 Wai Brown DO DO ms3 Sarahy Zaragoza RN RN nw1
--- NOTE | 2023-01-28 13:50 | EKG ---
Test Date: 2023-01-27 Test Time: 21:19:23 Medical Malpractice Paralegal: GLORIA MEASUREMENT RESULTS: Intervals: Rate: 78 WV: 172 QRSD: 92 QT: 368 QTc: 419 [place]: P: 36 WV: 172 QRS: 145 T: 6 INTERPRETIVE STATEMENTS: Normal sinus rhythm Indeterminate axis Low voltage QRS Inferior infarct, age undetermined Cannot rule out Anterior infarct, age undetermined Abnormal ECG Compared to ECG 05/04/2022 14:38:47 Indeterminate axis now present Low QRS voltage now present Left-axis deviation no longer present Myocardial infarct finding still present Electronically Signed On 01-28-23 13:49:37 CDT by Marvin Tineo
== END 2023-01-27 22:20 | disposition home or self-care (01) ==
LOC: ER 19:00
DX: R10.11 Right upper quadrant pain (principal); R05.9 Cough, unspecified; I10 Essential (primary) hypertension
CPT/HCPCS: 36415; 71046; 76705; 80053; 83690; 85025; 93005; 99284

== ENCOUNTER 2024-07-15 07:54 | Emergency (ER) | payer OTHER ==
--- OUTSIDE RECORDS SUMMARY | 2024-07-15 07:58 | XMS REPORT | Continuity of Care Document ---
Author Name Unknown Address [address] [place] [address] [address] [place] [address] [facility] Address [address] [facility]. [address] [place] [address] Care Team Providers Care Concession Stand Attendant Name Role Phone LUBNA BAKER Attending Clinician Unavailable RYAN STEPHENS Attending Clinician Unavailable VIVIANA BRUNSON Attending Clinician Unavailable OTHER, ENTER NAME IN NOTES Attending Clinician U ANNMARIE Ashley Attending Clinician UnavailYARITZA Orr Attending Clinician Unavailab caridad Lowe Attending Clinician Unavailable MOHAN TORIBIO Attending Clinician UnavailEV Zavala Attending Clinician Unavailable STACIA MOREL Attending Clinician Unavailable ORION SANDOVAL Attending Clinician Unavailab LEMUEL Munguia Attending Clinician Unavailable CARA GALLEGOS Attending Clinician Unavailable Mynor Admitting Clinician Unavailable LEMUEL CUADRA Admitting Clinician Unavailable Payers Payer Name Policy Type Policy Number Effective Date Expirati on Date Source [employer] - CHOICE (POS II) [id number] 2006 00:00:00 Social History Smoking Status Start Date Stop Date Source Former Smoker [facility] Medications Ordered Medication Name Filled Medication Name Start Date Stop Date Current Medication? Ordering Clinician Indication Dosage Frequency Signature (SIG) Comments Components Source allopurinol 100 mg tablet allopurinol 100 mg tablet No allopurino l 100 mg tablet [facility] cefdinir 300 mg capsule Take 1 capsule every 12 hours by oral route for 10 days. cefdinir 300 mg capsule Take 1 capsule every 12 hours by oral route for 10 days. No 1capsul e(s) Q12H cefdinir 300 mg capsule Take 1 capsule every 12 hours by oral route for 10 days. [facility] furosemide 20 mg tablet furosemide 20 mg tablet No furosemide 20 mg tablet [facility] Jynarque 15 mg (AM)/15 mg (PM) tablets Jynarque 15 mg (AM)/15 mg (PM) tablets No Jynarque 15 mg (AM)/15 mg (PM) tablets [facility] lisinopril 20 mg tablet lisinopril 20 mg tablet No lisinopril 20 mg tablet [facility] potassium citrate ER 15 mEq (1,620 mg) tablet,exte nded release TAKE 1 TABLET BY MOUTH IN THE MORNING AND IN THE EVENING potassium citrate ER 15 mEq (1,620 mg) tablet,exte nded release TAKE 1 TABLET BY MOUTH IN THE MORNING AND IN THE EVENING No potassium citrate ER 15 mEq (1,620 mg) tablet,ext ended release TAKE 1 TABLET BY MOUTH IN THE MORNING AND IN THE EVENING [facility] prednisone 20 mg tablet prednisone 20 mg tablet No prednisone 20 mg tablet [facility] codeine 10 mg-guaifene sin 100 mg/5 mL oral liquid Take 5 mL every 8 hours by oral route as needed. may cause drowsiness codeine 10 mg-guaifene sin 100 mg/5 mL oral liquid Take 5 mL every 8 hours by oral route as needed. may cause drowsiness No 5mL Q8H codeine 10 mg-guaifen esin 100 mg/5 mL oral liquid Take 5 mL every 8 hours by oral route as needed. may cause drowsiness [facility] febuxostat 40 mg tablet febuxostat 40 mg tablet No febuxostat 40 mg tablet [facility] pantoprazol e 40 mg tablet,billie yed release TAKE 1 TABLET BY MOUTH EVERY 12 HOURS EVERY DAY pantoprazol e 40 mg tablet,billie yed release TAKE 1 TABLET BY MOUTH EVERY 12 HOURS EVERY DAY No pantoprazo le 40 mg tablet,del ayed release TAKE 1 TABLET BY MOUTH EVERY 12 HOURS EVERY DAY [facility] albuterol sulfate HFA 90 mcg/actuati on aerosol inhaler INHALE 2 PUFFS BY MOUTH EVERY 4 HOURS NEEDED FOR WHEEZING OR SHORTNESS OF BREATH albuterol sulfate HFA 90 mcg/actuati on aerosol inhaler INHALE 2 PUFFS BY MOUTH EVERY 4 HOURS NEEDED FOR WHEEZING OR SHORTNESS OF BREATH No albuterol sulfate HFA 90 mcg/actuat ion aerosol inhaler INHALE 2 PUFFS BY MOUTH EVERY 4 HOURS NEEDED FOR WHEEZING OR SHORTNESS OF BREATH [facility] Flonase Allergy Relief 50 mcg/actuati on nasal spray,suspe nsion [place] 2 sprays every day by intranasal route. Flonase Allergy Relief 50 mcg/actuati on nasal spray,suspe nsion [place] 2 sprays every day by intranasal route. No 2spray( s) Q1D Flonase Allergy Relief 50 mcg/actuat ion nasal spray,susp ension [place] 2 sprays every day by intranasal route. [facility] tadalafil 20 mg tablet tadalafil 20 mg tablet No tadalafil 20 mg tablet [facility] Vital Signs Vital Name Observation Time Observation Value Comments S ource BMI (Body Mass Index) 2024-03-20 00:00:00 33.3 kg/m2 [facility] BP Diastolic 2024-03-20 00:00:00 103 mm[Hg] [facility] Height 2024-03-20 00:00:00 70 [in_i] [facility] Body Weight 2024-03-20 00:00:00 3714 [oz_av] [facility] BP Systolic 2024-03-20 00:00:00 150 mm[Hg] [facility] BP Diastolic 2022-08-09 00:00:00 107 mm[Hg] [facility] Height 2022-08-09 00:00:00 70 [in_i] [facility] BMI (Body Mass Index) 2022-08-09 00:00:00 32.7 kg/m2 [facility] BP Systolic 2022-08-09 00:00:00 156 mm[Hg] [facility] Body Weight 2022-08-09 00:00:00 3648 [oz_av] [facility] BP Diastolic 2022-03-06 00:00:00 93 mm[Hg] [facility] Height 2022-03-06 00:00:00 70 [in_i] [facility] BMI (Body Mass Index) 2022-03-06 00:00:00 33 kg/m2 [facility] BP Systolic 2022-03-06 00:00:00 130 mm[Hg] [facility] Body Weight 2022-03-06 00:00:00 3680 [oz_av] [facility] Height 2020-06-30 00:00:00 70 [in_i] [facility] BMI (Body Mass Index) 2020-06-30 00:00:00 31.6 kg/m2 [facility] Body Weight 2020-06-30 00:00:00 3520 [oz_av] [facility] Encounters Start Date/Time End Date/Time Encounter Type Admission Type [facility]ending [facility] Facility Care Department Encounter ID Source 2024-04-03 05:51:00 2024-04-03 08:40:00 Emergency ER LUBNA BAKER [facility] [id number] [facility] 2024-03-20 00:00:00 2024-03-20 00:00:00 Ryan Kenny PA-C: [address] [place] [address], [address], [place] [address] , Ph. [facility] [id number] 1212 [facility] 2024-01-25 10:04:00 2024-01-25 10:04:00 Outpatient RYAN GARCIA [facility] [id number] [facility] 2023-11-16 11:58:00 2023-11-16 11:58:00 Outpatient VIVIANA DAIGLE [facility] [id number] [facility] 2023-10-19 08:30:00 2023-10-19 08:30:00 Outpatient VIVIANA DAIGLE [facility] [id number] [facility] 2023-10-11 09:06:00 2023-10-11 09:06:00 Outpatient VIVIANA DAIGLE [facility] [id number] [facility] 2023-08-31 09:18:00 2023-08-31 09:18:00 Outpatient VIVIANA DAIGLE [facility] [id number] [facility] 2023-06-29 11:36:00 2023-06-29 11:36:00 Outpatient VIVIANA DAIGLE [facility] [id number] [facility] 2023-06-27 13:08:00 2023-06-27 13:08:00 Outpatient VIVIANA DAIGLE [facility] [id number] [facility] 2023-06-01 10:04:00 2023-06-01 10:04:00 Outpatient VIVIANA DAIGLE [facility] [id number] [facility] 2023-04-19 11:48:00 2023-04-19 11:48:00 Outpatient VIVIANA DAIGLE [facility] [id number] [facility] 2023-02-06 11:44:00 2023-02-06 11:44:00 Outpatient JOHNY RUSSELL [facility] [id number] [facility] 2023-01-27 17:40:00 2023-01-27 19:50:00 Emergency ER ANNMARIE JOHNSON [facility] [id number] [facility] 2022-10-14 20:30:00 2022-10-14 23:33:00 Emergency ER ORLANDOANGELITOANDRAPHIL HOFFMANOR [facility] [id number] [facility] 2022-08-09 00:00:00 2022-08-09 00:00:00 Outpatient [facility] [id number] [facility] 2022-08-09 00:00:00 2022-08-09 00:00:00 Ryan Kenny PA-C: [address] [place] [address], [address], [place] [address] , Ph. [facility] [id number] [facility] 2022-03-06 00:00:00 2022-03-06 00:00:00 Outpatient Efraín_A [facility] [id number] [facility] 2022-03-06 00:00:00 2022-03-06 00:00:00 Ryan Kenny PA-C: [address], [place] [address] , Ph. [facility] [id number] [facility] 2021-09-16 09:22:00 2021-09-16 09:22:00 Outpatient CHERRY MOHAN TORIBIO [facility] [id number] [facility] 2021-07-15 10:31:00 2021-07-15 10:31:00 Outpatient CHERRY MALU RADHABUCKY [facility] [id number] [facility] 2021-04-14 13:44:00 2021-04-14 16:38:00 Emergency ER EV BUSH [facility] [id number] [facility] 2020-06-30 00:00:00 2020-06-30 00:00:00 Ryan Kenny PA-C: [address] [facility] [address], [place] [address] , Ph. [facility] [id number] [facility] 2018-12-01 13:41:00 2018-12-01 14:09:00 Emergency ER STACIA MOREL [facility] [id number] [facility] 2017-05-23 10:48:00 2017-05-23 12:47:00 Emergency ER ORION SANDOVAL [facility] [id number] [facility] 2014-02-12 16:42:00 2014-02-12 19:20:00 Emergency ER ORION SANDOVAL [facility] [id number] [facility] 2009-11-16 12:33:00 2009-11-17 09:26:00 Inpatient EL VEENCIA [facility] [id number] [facility] 2008-06-26 03:05:00 2008-06-26 04:58:00 Emergency ER ROSYCARA [facility] [id number] [facility] Results Test Description Test Time Test Comments Results Result Co mments Source [facility]
[2024-07-15] MEDS ORDERED: ONDANSETRON 4 MG/2 ML VIAL ONE (08:16)
[2024-07-15] MEDS ORDERED: TAMSULOSIN 0.4 MG SR CAP ONE (08:16)
[2024-07-15] MEDS ORDERED: KETOROLAC 30 MG/ML INJ ONE (08:16)
[2024-07-15] MEDS ORDERED: MORPHINE 4 MG/ML SYR ONE (08:17)
[2024-07-15] MEDS ORDERED: MAGNESIUM SULFATE 1 gm IVPB 1 GM/100 ML BAG IV ONE (08:17)
[2024-07-15 08:36] LABS: Absolute Basophils 0.1 K/uL (0-0.5); Absolute Eosinophils 0.2 K/uL (0-0.5); Absolute Lymphocytes (CBC) 2.5 K/uL (0.7-4.9); Absolute Monocytes 0.7 K/uL (0.1-1.3); Absolute Neutrophil 7.6 K/uL (1.8-8.0); Basophils % 1.2 % (0-1.3); Eosinophils % 1.9 % (0-4.4); Hematocrit 47.2 % (39.6-49.0); Hemoglobin 15.3 g/dL (13.6-17.9); Lymphocytes % 22.5 % (15.3-44.8); MCH 28.3 pg (27.0-35.0); MCHC 32.5 g/dL (32.0-36.0); MCV 87.2 fL (80-100); MPV 7.8 fL (7.6-11.3); Monocytes % 6.6 % (3.3-12.3); Neutrophils % 67.8 % (41.7-73.7); Nucleated Red Blood Cells % 0.1 % (0-0); Platelets 357 thou/uL (152-406); RBC Red Blood Cell Count 5.41 M/uL (4.33-5.43); Red Cell Distribution Width 15.6 % (12.1-15.2)
[2024-07-15 08:38] LABS: Albumin 3.5 g/dL (3.4-5.0); Albumin/Globulin Ratio 0.8 (1.1-1.8); Anion Gap 8.1 mEq/L (5.0-15.0); Bilirubin Total 0.5 mg/dL (0.2-1.0); Globulin 4.2 g/dL (2.3-3.5); Potassium 4.1 mEq/L (3.5-5.1); Protein, Total 7.7 g/dL (6.4-8.2)
--- NOTE | 2024-07-15 09:24 | RAD REPORT ---
EXAMINATION: CT Stone Protocol CLINICAL INDICATION: Male, 54 years old. left flank pain TECHNIQUE: CT abdomen and pelvis was performed, without IV contrast, as per department protocol. Axia l, sagittal and coronal reconstructions were obtained. One or more of the following dose reduction techniques were used: Automated exposure control, adjustment of the mA and kV according to the patien t size, and iterative reconstruction. Unless otherwise specified, incidental findings do not require dedicated imaging follow-up. COMPARISON: No prior exam. FINDINGS: The lack of intravenous contrast limits the sensitivity of this exam for evaluation of solid visceral organs, vascular structures, and retroperitoneum. LOWER CHEST: The visualized lung bases are clear. LIVER: Normal in size and contour. Multifocal fluid density thin-walled cysts throughout the liver, w ith some interval decrease in size of some of the largest lesions at the right hepatic dome. The largest lesion visualized along the left lobe measures 7.4 cm. No other suspicious focal lesion. BILIARY SYSTEM: Not visualized and could be surgically removed. No suspicious abnormalities. SPLEEN: Normal size. No focal lesion. PANCREAS: No mass, ductal dilation, or gemini-pancreatic fluid. ADRENALS: Normal; no mass. KIDNEYS AND URETERS: Changes of polycystic kidneys again seen, with areas of wall mineralization vers us layering milk of calcium along some of the dependent cysts, and small hyperdense cysts suggesting hemorrhagic change. Nonobstructing left upper to midpole-3 mm calculus. Normal size and co ntour. No hydronephrosis. URINARY BLADDER: Normal contour. GASTROINTESTINAL TRACT: No evidence of bowel obstruction, significant free fluid, free air or abscess . APPENDIX: Normal appendix. LYMPH NODES: No lymphadenopathy. MUSCULOSKELETAL: No acute or suspicious osseous abnormality. ADDITIONAL FINDINGS: Mild subcutaneous edema along the right more than left gluteal regions. Correlat e with patient's fluid status and/or recent trauma IMPRESSION: Nonobstructing left renal 2-3 mm upper to midpole calculus. Changes of polycystic liver and kidney disease again seen. No significant interval change..
[2024-07-15 09:29] LABS: Sqamous Epithelial None Seen /HPF (None Seen); Urine Bacteria None Seen /HPF (<20); Urine Culture Reflex Order NOT NEEDED; Urine Microscopic Reflex YN ORDER UMIC; Urine Mucus Slight /HPF (None Seen); Urine RBC <5 /HPF (None Seen); Urine WBC <5 /HPF (<5)
[2024-07-15 09:30] LABS: Urine Clarity Cloudy (Clear); Urine Color Yellow (Yellow)
[2024-07-15 09:31] LABS: Urine Bilirubin Negative (Negative); Urine Blood Negative (Negative); Urine Glucose Negative (Negative); Urine Ketones Negative (Negative); Urine Nitrite Negative (Negative); Urine Protein Negative (Negative); Urine Urobilinogen Normal (Normal)
--- NOTE | 2024-07-15 09:35 | ER ---
Nurse's Notes [facility] Name: Liban Díaz III Age: 54 yrs Sex: Male : 1970 Arrival Date: 07/15/2024 Time: 07:54 Bed 5 Private MD: Diagnosis: Calculus of kidney;Polycystic kidney, unspecified Presentation: 07/15 08:06 Chief complaint: Patient states: L flank/ abd pain that began or Sunday. Pt ss reports a hx of Kidney stones and states that this feels like another one. Coronavirus screen: Client denies travel out of the [place] in the last 14 days. Ebola Screen: Patient denies exposure to infectious person. Patient denies travel to an Ebola-affected area in the 21 days before illness onset. Initial Sepsis Screen: Does the patient meet any 2 criteria? No. Patient's initial sepsis screen is negative. Does the patient have a suspected source of infection? No. Patient's initial sepsis screen is negative. Risk Assessment: Do you want to hurt yourself or someone else? Patient reports no desire to harm self or others. Onset of symptoms was July 10, 2024. 08:06 Method Of Arrival: Ambulatory ss 08:06 Acuity: DALIA 3 ss Historical: - Allergies: 08:10 No Known Allergies; ss - PMHx: 08:10 Hypertensive disorder; PCKD; ss - PSHx: 08:10 Ankle; Shoulder; ss - Immunization history:: Adult Immunizations up to date. - Infectious Disease History:: Denies. - Family history:: not pertinent. - Hospitalizations: : No recent hospitalization is reported. - Social history:: Smoking status: Patient denies any tobacco usage or history of. Screenin:45 [facility] ED Fall Risk Assessment (Adult) History of falling in the last 3 months, ld1 including since admission No falls in past 3 months (0 pts) Confusion or Disorientation No (0 pts) Intoxicated or Sedated No (0 pts) Impaired Gait No (0 pts) Mobility Assist Device Used No (0 pt) Altered Elimination No (0 pt) Score/Fall Risk Level 0 - 2 = Low Risk Oriented to surroundings, Hourly rounding (assess needs \T\ fall precautionary measures) done. Abuse screen: Denies threats or abuse. Denies injuries from another. Nutritional screening: No deficits noted. Tuberculosis screening: No symptoms or risk factors identified. Assessment: 08:11 General: Appears uncomfortable, Behavior is calm, cooperative, appropriate for age. ll1 Pain: Complains of pain in back Quality of pain is described as aching. GI: Reports upper abdominal pain. : Reports pain in left flank(s). 08:44 Reassessment: No changes from previously documented assessment. Patient and/or family ll1 updated on plan of care and expected duration. Pain level reassessed. Patient is alert, oriented x 3, equal unlabored respirations, skin warm/dry/pink. Patient states feeling better. 09:45 GI: Bowel sounds present X 4 quads. ll1 09:46 GI: ld1 Vital Signs: 08:06 BP 178 / 112; Pulse 86; Resp 16; Temp 98.6(O); Pulse Ox 100% on R/A; Weight 103.42 kg; ss Height 5 ft. 10 in. ; Pain 6/10; 08:44 BP 146 / 91; Pulse 80; Resp 18; Pulse Ox 98% on R/A; ld1 09:45 BP 142 / 98; Pulse 82; Resp 18; Pulse Ox 100% on R/A; ld1 08:06 Body Mass Index 32.71 (103.42 kg, 177.8 cm) ss 08:06 Pain Scale: Adult ss ED Course: 07:58 Patient arrived in ED. im 08:00 Josue Del Valle MD is Attending Physician. rn 08:00 Arm band placed on Patient placed in an exam room, on a stretcher. ss 08:10 Triage completed. ss 08:10 Provided Education on: ER procedures and process. ll1 08:11 Initial lab(s) drawn, by ut, sent to lab. Inserted saline lock: 22 gauge in right ll1 antecubital area, using aseptic technique. Blood collected. Flushed with 10 mL NS. 08:17 Oumou Flores, OSMANI is Primary Nurse. ll1 08:20 CT Stone Protocol In Process Unspecified. EDMS 09:45 Patient has correct armband on for positive identification. Placed in gown. Bed in low ld1 position. Call light in reach. Side rails up X2. Pulse ox on. NIBP on. Door closed. Noise minimized. Warm blanket given. 09:45 No provider procedures requiring assistance completed. IV discontinued, intact, ld1 bleeding controlled, No redness/swelling at site. Administered Medications: 08:33 Drug: Magnesium Sulfate IVPB 1 grams IVPB once over 1 hrs Route: IVPB; Infused Over: 1 ld1 hrs; Site: right antecubital; 09:34 Follow up: Response: No adverse reaction; IV Status: Completed infusion; IV Intake: ll1 100ml 09:46 Follow up: IV Status: Completed infusion; IV Intake: 100ml ld1 08:38 Drug: TORadol - Ketorolac IVP 15 mg IVP once Route: IVP; Site: right antecubital; ld1 08:44 Follow up: Response: No adverse reaction; Pain is decreased ll1 08:38 Drug: Ondansetron IVP 4 mg IVP once; over 2 minutes Route: IVP; Site: right antecubital;ld1 08:44 Follow up: Response: No adverse reaction ll1 08:38 Drug: Flomax PO 0.4 mg PO once Route: PO; ld1 08:45 Follow up: Response: No adverse reaction ll1 08:39 Drug: morphine IVP or IV 4 mg IVP once over 4 mins Route: IVP; Infused Over: 4 mins; ld1 Site: right antecubital; 08:44 Follow up: Response: No adverse reaction; Pain is decreased; RASS: Alert and Calm (0) ll1 Medication: 09:45 VIS not applicable for this client. ld1 Intake: 09:34 IV: 100ml; Total: 100ml. ll1 09:46 IV: 100ml; Total: 200ml. ld1 Outcome: 09:35 Discharge ordered by MD. gilbert 09:46 Discharged to home ambulatory, ld1 09:46 Condition: stable 09:46 Discharge instructions given to patient, Instructed on discharge instructions, follow up and referral plans. Demonstrated understanding of instructions, follow-up care, 09:46 Patient left the ED. ld1 Signatures: Dispatcher [employer] EDMS Josue Del Valle MD MD rn Blanchard, Shelby, RN RN ss Lewis, Lynsay, RN RN 1 Angela Brown RN RN ld1 Erica Quintero
--- NOTE | 2024-07-15 09:35 | EDPHYS ---
Physician Documentation [facility] Name: Liban Díaz III Age: 54 yrs Sex: Male : 1970 Arrival Date: 07/15/2024 Time: 07:54 Bed 5 Private MD: ED Physician Josue Del Valle HPI: 07/15 08:06 This 54 yrs old Male presents to ER via Unassigned with complaints of Possible Kidney rn Stone. 08:06 The patient complains of pain in the left mid back. The pain radiates. Onset: The rn symptoms/episode began/occurred yesterday. Modifying factors: The symptoms are alleviated by nothing. the symptoms are aggravated by nothing. Severity of pain: At its worst the pain was moderate in the emergency department the pain is unchanged. The patient has not experienced similar symptoms in the past. The patient has not recently seen a physician. . Patient reports left flank pain that began yesterday, identical to previous kidney stones. Reports dark urine. No fever or chills. No vomiting.. Historical: - Allergies: 08:10 No Known Allergies; ss - PMHx: 08:10 Hypertensive disorder; PCKD; ss - PSHx: 08:10 Ankle; Shoulder; ss - Immunization history:: Adult Immunizations up to date. - Infectious Disease History:: Denies. - Family history:: not pertinent. - Hospitalizations: : No recent hospitalization is reported. - Social history:: Smoking status: Patient denies any tobacco usage or history of. ROS: 08:06 Constitutional: Negative for fever, chills, and weight loss, Cardiovascular: Negative rn for chest pain, palpitations, and edema, Respiratory: Negative for shortness of breath, cough, wheezing, and pleuritic chest pain, Abdomen/GI: Positive for left flank pain and nausea Back: Positive for left flank pain : Positive for dark urine MS/Extremity: Negative for injury and deformity, Skin: Negative for injury, rash, and discoloration, Neuro: Negative for headache, weakness, numbness, tingling, and seizure, Exam: 08:06 Constitutional: This is a well developed, well nourished patient who is awake, alert, rn and in no acute distress. Head/Face: Normocephalic, atraumatic. Cardiovascular: Regular rate and rhythm. No pulse deficits. Respiratory: No increased work of breathing, no retractions or nasal flaring. Abdomen/GI: Soft, non-tender Vital Signs: 08:06 BP 178 / 112; Pulse 86; Resp 16; Temp 98.6(O); Pulse Ox 100% on R/A; Weight 103.42 kg; ss Height 5 ft. 10 in. ; Pain 6/10; 08:44 BP 146 / 91; Pulse 80; Resp 18; Pulse Ox 98% on R/A; ld1 09:45 BP 142 / 98; Pulse 82; Resp 18; Pulse Ox 100% on R/A; ld1 08:06 Body Mass Index 32.71 (103.42 kg, 177.8 cm) ss 08:06 Pain Scale: Adult ss MDM: 08:00 Medical Screening Exam initiated rn 09:32 Differential diagnosis: nephrolithiasis. Data reviewed: vital signs, nurses notes, label printing machinist test result(s), radiologic studies, CT scan, and as a result, I will discharge patient. Counseling: I had a detailed discussion with the patient and/or guardian regarding the historical points, exam findings, and any diagnostic results supporting the discharge/admit diagnosis, lab results, radiology results, the need for outpatient follow up, to return to the emergency department if symptoms worsen or persist or if there are any questions or concerns that arise at home. Special discussion: I discussed with the patient/guardian in detail that at this point there is no indication for admission to the hospital. It is understood, however, that if the symptoms persist or worsen the patient needs to return immediately for re-evaluation. ED course: No acute findings on ct imaging. Pt with known polycystic kidney disease without acute changes. Likely passed kidney stone. Feels much better and thankful. Will dc home with return precautions. . 07/15 08:04 Order name: CBC with Diff; Complete Time: 09:25 rn 07/15 08:04 Order name: CMP; Complete Time: 09:25 rn 07/15 08:04 Order name: Urinalysis w/ reflexes; Complete Time: 09:36 rn 07/15 08:04 Order name: CT Stone Protocol; Complete Time: 09:25 rn 07/15 08:04 Order name: IV Saline Lock; Complete Time: 08:10 rn 07/15 08:04 Order name: Labs collected and sent; Complete Time: 08:10 rn Administered Medications: 08:33 Drug: Magnesium Sulfate IVPB 1 grams IVPB once over 1 hrs Route: IVPB; Infused Over: 1 ld1 hrs; Site: right antecubital; 09:34 Follow up: Response: No adverse reaction; IV Status: Completed infusion; IV Intake: ll1 100ml 09:46 Follow up: IV Status: Completed infusion; IV Intake: 100ml ld1 08:38 Drug: TORadol - Ketorolac IVP 15 mg IVP once Route: IVP; Site: right antecubital; ld1 08:44 Follow up: Response: No adverse reaction; Pain is decreased ll1 08:38 Drug: Ondansetron IVP 4 mg IVP once; over 2 minutes Route: IVP; Site: right antecubital;ld1 08:44 Follow up: Response: No adverse reaction ll1 08:38 Drug: Flomax PO 0.4 mg PO once Route: PO; ld1 08:45 Follow up: Response: No adverse reaction ll1 08:39 Drug: morphine IVP or IV 4 mg IVP once over 4 mins Route: IVP; Infused Over: 4 mins; ld1 Site: right antecubital; 08:44 Follow up: Response: No adverse reaction; Pain is decreased; RASS: Alert and Calm (0) ll1 Disposition Summary: 07/15/24 09:35 Discharge Ordered Notes: Location: Home rn Problem: new rn Symptoms: have improved rn Condition: Stable rn Diagnosis - Calculus of kidney rn - Polycystic kidney, unspecified rn Followup: rn - With: Private Physician - When: As needed - Reason: Recheck today's complaints, Re-evaluation by your physician Discharge Instructions: - Discharge Summary Sheet rn - Kidney Stones rn Forms: - Medication Reconciliation Form rn - 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 EDMS EDMS 08:04 08:04 COMPREHENSIVE METABOLIC PANEL+C.LAB.BRZ ordered. EDMS EDMS 08:04 08:04 Urinalysis+U.LAB.BRZ ordered. EDMS EDMS
[2024-07-15 09:53] VITALS: TEMP 98.6
[2024-07-15 09:56] VITALS: BP 142/98; O2SAT 100
== END 2024-07-15 09:46 | disposition home or self-care (01) ==
LOC: ER 07:54
DX: N20.0 Calculus of kidney (principal); Q61.3 Polycystic kidney, unspecified; I10 Essential (primary) hypertension
CPT/HCPCS: 96365; 85025; 81001; 36415; 80053; 76377; 74176; 96375; 99284; J3475; J2405